=== PATIENT | female | born 1930 | race Two or more races ===

== ENCOUNTER → 2017-06-27 | Outpatient (CLI) | payer BC | END | disposition home or self-care (01) | LOC: US 11:47 | DX: K80.20 Calculus of gallbladder without cholecystitis without obstruction (principal); I10 Essential (primary) hypertension; E11.9 Type 2 diabetes mellitus without complications | CPT/HCPCS: 76700; 76856 ==

== ENCOUNTER → 2017-07-08 | Outpatient (CLI) | payer BC ==
[~2017-07-08] MED LIST: CONTRAST GIVEN MC
[2017-07-08 09:44] LABS: CREATININE 1.1 mg/dL (0.6-1.0); GFR 47.1
[2017-07-08 09:44] LABS: BLOOD UREA NITROGEN 28 mg/dL (7-20)
[2017-07-08] MEDS: IOHEXOL 240 MG/ML 50ML VIAL. PO (11:14)
[2017-07-08] MEDS: IOHEXOL 300 MG/ML 100ML VIAL. IV (11:14)
== END | disposition home or self-care (01) ==
LOC: CT 08:59
DX: K80.20 Calculus of gallbladder without cholecystitis without obstruction (principal); K57.30 Diverticulosis of large intestine without perforation or abscess without bleeding; I51.7 Cardiomegaly; I10 Essential (primary) hypertension; E11.9 Type 2 diabetes mellitus without complications
CPT/HCPCS: 36415; 74177; 82565; 84520; Q9966; Q9967

== ENCOUNTER → 2018-07-08 | Outpatient (CLI) | payer BC ==
[~2018-07-08] MED LIST changes: -CONTRAST GIVEN MC; +LISI1TAB7 PO; +METO100T7 PO; +NAPR-514 PO; +TRAM50TA PO
--- NOTE | 2018-07-08 14:41 | KCIC ---
MRI Lumbar Spine without contrast History: Degenerative disc disease, fall last December, low back pain into the right hip, previous surgery Technique: Multiplanar, multi sequential noncontrast MR imaging was performed of the lumbar spine. Comparison: 11/30/2015 MRI lumbar spine exam and also CT abdomen pelvis exam July 08, 2017 Findings: There is L1 compression deformity new since previous exams although not associated with significant marrow edema. There is again 1 anterior spondylolisthesis at L5-S1, negligible posterior subluxation L2 relative to L3 and L1 relative to L2. Conus terminates at L1. There is again small hemangioma anteriorly of L5 vertebral body. There is variable fairly severe degenerative disc disease T12-L1 through L4-5 and to lesser degree at L5-S1. There is trace L2-3 and T12-L1 endplate edema likely reactive/degenerative in etiology. There is moderate levoscoliosis centered near L3. There is mild left lateral subluxation L3 relative L4. There is very mild right lateral subluxation of L1 relative L2. T11-12: There is mild buckling of the ligamentum flavum and facet degenerative change. There is also shallow bulge/protrusion at this level slightly indenting the ventral thecal sac greater in the right lateral recess. Spinal canal is not significantly narrowed. There is mild to moderate posterior neural foramina compromise bilaterally by facets. T12-L1: There is again minimal disc osteophyte complex and shallow bulge with indentation upon the ventral thecal sac greater in the far lateral recess. There is mild buckling of the ligamentum flavum and facet degenerative change. There is mild narrowing of the far left lateral recess. There is fairly severe narrowing of the left neural foramen due to osteophytes and facet degenerative change, minimal posterior narrowing of the right neural foramen. L1-L2: There is mild buckling of the ligamentum flavum and facet hypertrophic change. There is disc osteophyte complex and superimposed bulge, mild indentation upon the ventral thecal sac, also very shallow extrusion extending slightly below the intervertebral disc space in the left lateral recess. There is mild narrowing of the far left lateral recess as seen previously. There is moderate to severe neural foramina compromise bilaterally overall increased due to L1 vertebral body height loss. L2-L3: There is again disc osteophyte complex with superimposed bulge. There is mild buckling of the ligamentum flavum and facet degenerative change. There is similar minimal narrowing of the far lateral recesses bilaterally. There is again moderate to severe narrowing of the right neural foramen by disc osteophyte complex and facet, left neural foramen adequate. L3-L4: There is again moderate right greater than left facet degenerative change and [id number] buckling of the ligamentum flavum greater on the right. There is again disc osteophyte complex and bulge. There is again overall mild spinal stenosis, again narrowing of the far lateral recesses bilaterally. There is mild left and fairly severe right neural foramina compromise as seen previously, narrowing on the right due to disc osteophyte complex in combination with facet degenerative change and buckling of the ligamentum flavum with contact exiting right L3 nerve root extending to proximal extraforaminal region as seen previously. L4-L5: There is again severe buckling of the ligamentum flavum and moderate to severe left greater than right facet degenerative change. There is again broad posterior disc osteophyte complex with superimposed bulge/broad protrusion. Combination of findings again results in severe spinal stenosis with limited preserved subarachnoid space, lateral recess stenosis bilaterally with impingement of the descending L5 nerve roots greater on the left. There is severe left and moderate to severe right neural foramina compromise as seen previously, contact of the exiting left L4 nerve root by disc osteophyte complex and facet seen previously. L5-S1: There is again severe facet hypertrophic change bilaterally. There is left laminectomy defect. There is partial uncovering of the posterior aspect of the disc due to spondylolisthesis. Spinal canal is overall adequate. There is mild narrowing of the right neural foramen, severe narrowing of the left neural foramen with contact exiting left L5 nerve root unchanged. Impression: 1. Comparing with 2016 exam, there has been development of L1 compression fracture although not associated with significant marrow edema. There is again multilevel lumbar degenerative disc disease, L5-S1 least affected. There is multilevel lumbar facet degenerative change, mild abnormal alignment, and lumbar levoscoliosis. 2. There is again severe spinal stenosis at L4-5, lateral recess stenosis bilaterally with impingement of the descending L5 nerve roots. There is mild spinal stenosis at L3-4, other mild narrowing of the far lateral recesses bilaterally at L2-3 and on the left at L1-2. 3. There is multilevel lumbar neural foramina compromise, more significant narrowing on the left at L5-S1, bilaterally at L4-5 and L1-2, and on the right at L3-4 and L2-3 Electronically signed by: Skyler Ward MD (07/08/2018 2:39 PM) [facility]
== END | disposition home or self-care (01) ==
LOC: KCIC MRI 13:03
PROVIDERS: ATTEND Orthopaedic Surgery Sports Medicine
DX: M48.56XA Collapsed vertebra, not elsewhere classified, lumbar region, initial encounter for fracture (principal); M51.37 Other intervertebral disc degeneration, lumbosacral region; M51.35 Other intervertebral disc degeneration, thoracolumbar region; M48.05 Spinal stenosis, thoracolumbar region; M48.07 Spinal stenosis, lumbosacral region; M43.8X6 Other specified deforming dorsopathies, lumbar region; M43.17 Spondylolisthesis, lumbosacral region; M25.78 Osteophyte, vertebrae; M89.38 Hypertrophy of bone, other site
CPT/HCPCS: 72148

== ENCOUNTER → 2018-09-16 | Outpatient (CLI) | payer BC ==
[~2018-09-16] MED LIST changes: +ASPI81TA50 PO; +BUPIVACAINE MPF 0.25% 10 ML VIAL. ONE; +CHOL500016 PO; +HYDR-2869 PO; +IOHEXOL 180 MG/ML 10 ML VIAL. ONE; +METF500T16 PO; +methylPREDNISolone ACETATE 40 MG/ML VIAL. ONE; +methylPREDNISolone ACETATE 80 MG/ML VIAL. ONE
--- NOTE | 2018-09-17 04:44 | PN ---
DATE: 09/16/2018 PROGRESS NOTE FOR PAIN CLINIC DIAGNOSIS: Low back pain with lumbar spinal stenosis and post-lumbar laminectomy syndrome and lumbar and lumbosacral spondylosis. HISTORY OF PRESENT ILLNESS: The patient is an 88-year-old female who returns for followup status post previous lumbar epidural steroid injections last seen in 08/2015. The patient reports she has had a right hip replacement and had been doing a followup with her orthopedic surgeon for pain in her low back and right hip and was referred on to us as it was not the etiology from her hip by their estimation. The patient reports still significant pain across the low back into the right posterior gluteus, posterior lateral thigh, across the low back mostly, not radiating past the upper thigh and posteriorly. The patient reports it is 10 on a scale of 10 at all times at its worst, average, at its least a 10 today, worse with walking, standing, putting weight on it. Sitting is better. Leaning forward is better, especially worse with standing and walking, even for few minutes if she is standing. It does not awake her from sleep at night, better with lying down. The patient reports it is sharp and shooting, aching and dull when moving and any movement outside of sitting or lying down causes the pain to become severe. The patient reports no loss of motor function, no bowel or bladder incontinence, no weakness of lower extremities. PHYSICAL EXAMINATION: VITAL SIGNS: The patient's blood pressure is 163/91, pulse 80, respirations 18, temperature 97.4 degrees Fahrenheit, height is 5 feet 4 inches and weight is 155 pounds. GENERAL: The patient is awake, alert, oriented, appropriate, very pleasant demeanor. The patient is accompanied by her daughter. HEENT: Head is normocephalic, atraumatic. Extraocular movements are intact and symmetrical. Oral cavity shows mucous membranes moist and pink. Dentition is intact. NECK: Shows anterior throat supple. Full rotational motion of the cervical spine without significant difficulty or pain reported. CHEST: Shows normal on inspection. Breath sounds are clear to auscultation bilaterally. HEART: Shows S1, S2 clear. No murmurs auscultated. ABDOMEN: Soft, nontender, nondistended. BACK: Shows spine grossly in the midline. Moderate exaggeration of thoracic kyphosis and significant flattening of lumbar lordotic curvature. There is a well-healed surgical scar in the midline. Lumbar paraspinous shows symmetrical on inspection. The inferior aspect of the paraspinous muscles is very tender with palpation diffusely, much more on the right than the left, but without radiation and without trigger points. The patient shows good rotational motion with moderate pain with right lateral rotation as well as with extension and axial loading in the lumbar spine, significant pain reported bilaterally, again worse right than left. EXTREMITIES: Lower extremities showed deep tendon reflexes at 1+ in the patellar and tendo-calcaneus tendons. Motor exam is approximately 4 on a scale of 5, but symmetrical and equal with dorsiflexion, extension, quadriceps and hamstring flexion. Peripheral pulses are 1+. No peripheral edema is noted. Options were discussed with the patient. The patient's old chart was reviewed as was her current medication regimen updated. Current review of systems updated today as well. We will proceed with bilateral L4-L5 and L5-S1 facet joint injections today with fluoroscopic guidance. Risks were again discussed including, but not limited to bleeding, infection, possibility of epidural hematoma, subsequent neurologic compromise, dural puncture, headaches, spinal cord and/or nerve damage, side effects of steroid medication and poor results regarding pain control. The patient understands and wished to proceed. The patient will return to clinic in approximately 2 weeks for followup, was counseled on return appointment, activity level and side effects to be aware of. DIAGNOSIS: Lumbar and lumbosacral spondylosis with post-lumbar laminectomy syndrome and lumbar spinal stenosis. PROCEDURE: Lumbar L4-L5 and L5-S1 facet joint injections bilaterally using C-arm fluoroscopic guidance under sterile prep and drape using local anesthetic. MEDICATION INJECTED: A total of 120 mg Depo-Medrol plus 4 mL of 0.25% bupivacaine and 2 mL of Isovue for contrast. CONDITION AT DISCHARGE: Stable. The patient tolerated the procedure well, had no complications. ANTHONY CANTU MD DR: BALJIT/joelle JOB#: [id number] / [id number]
== END ==
LOC: PNCL 11:08
PROVIDERS: ATTEND Anesthesiology
DX: M47.817 Spondylosis without myelopathy or radiculopathy, lumbosacral region (principal); M48.061 Spinal stenosis, lumbar region without neurogenic claudication; M96.1 Postlaminectomy syndrome, not elsewhere classified
CPT/HCPCS: 64493; 64494; J1030; J1040; J3490; Q9965

== ENCOUNTER → 2018-10-02 | Outpatient (CLI) | payer BC ==
[~2018-10-02] MED LIST changes: -methylPREDNISolone ACETATE 40 MG/ML VIAL. ONE
--- NOTE | 2018-10-03 00:51 | PN ---
DATE: 10/02/2018 DIAGNOSES: 1. Lumbar radiculopathy with lumbar spinal stenosis, post-lumbar laminectomy syndrome, lumbar and lumbosacral spondylosis. 2. Right sacroiliitis. HISTORY OF PRESENT ILLNESS: The patient is an 88-year-old female who returns for followup status post bilateral L4-L5 and L5-S1 facet joint injections on her last visit, which was 09/16/2018. The patient reports she did very well and her back is only hurting a little at this point and is doing quite well when seated that she was reporting no pain in the back or the legs, but her main complaint is the right posterior hip pain, which has been much worse with walking, standing, changing positions, getting up from a seated position, especially and standing on her right leg. The patient reports a burning, aching, sharp pain is becoming more constant with walking, rated at 8 on a scale of 10 at its worst over the past week, 8 on average and a 3 at its least, this is when sitting. The patient reports it awakens her from sleep occasionally, but generally is not bothersome when she is sitting or lying down. The patient reports no new motor or sensory deficits, no new bowel or bladder incontinence. PHYSICAL EXAMINATION: VITAL SIGNS: The patient's blood pressure 145/73, pulse 67, respirations 18, temperature 97.7 degrees Fahrenheit, height is 5 feet 4 inches, weight is 155 pounds. GENERAL: The patient is awake, alert, oriented, appropriate, very pleasant demeanor. HEENT: Shows normocephalic, atraumatic. Extraocular movements are intact. Symmetrical. Oral cavity: Mucous membranes moist and pink. Dentition is intact. NECK: Shows anterior throat supple without palpable lymphadenopathy noted. Swallow reflex symmetrical. CHEST: Shows normal on inspection. Breath sounds clear to auscultation bilaterally. HEART: Shows S1, S2 clear. No murmurs auscultated. ABDOMEN: Soft, nontender, nondistended. No palpable organomegaly is noted. No rebound or guarding demonstrated. BACK: Shows spine grossly in the midline, some flattening of lumbar lordotic curvature. Well-healed surgical scar noted. With palpation, shows some moderate tenderness in the inferior aspect of the lumbar paraspinous muscle trigger points, but only diffusely. There is significant tenderness; however, over the posterior superior iliac spine on the right hand, significant tenderness with palpation over the right sacroiliac joint compared to the left. The patient has good rotational motion of lumbar spine, both laterally greater than 10 degrees right and left as well as extension and forward flexion without difficulty. EXTREMITIES: The patient's lower extremities show deep tendon reflexes 1+ in the patellar and tendo-calcaneus tendons. Motor exam is approximately 4 on a scale of 5, but symmetrical in dorsiflexion, extension, quadriceps and hamstring flexion equal. Peripheral pulses are 1+ posterior tibial. No peripheral edema is noted. Options were discussed with the patient. The patient's old chart was reviewed as her current medication regimen updated. Current review of systems updated today as well. We will proceed with a right sacroiliac joint injection today with fluoroscopic guidance. Risks were again discussed including, but not limited to bleeding, infection, possibility of intravascular injection sequelae, spread of local anesthetic and numbness, side effects of steroid medication, exposure to fluoroscopy and poor results regarding pain control. The patient understands and wished to proceed. The patient will return to clinic in approximately 2 weeks for followup. She was counseled on return appointment, activity level and side effects to be aware of. DIAGNOSIS: Right sacroiliitis. PROCEDURE: Right sacroiliac joint injection using C-arm fluoroscopic guidance under sterile prep and drape using local anesthetic. MEDICATION INJECTED: A total of 3 mL of 0.25% bupivacaine and a total of 40 mg Depo-Medrol and 2 mL of contrast. CONDITION AT DISCHARGE: Stable. The patient tolerated the procedure well, had no complications. ANTHONY CANTU MD DR: BALJIT/joelle JOB#: [id number] / [id number]
== END ==
LOC: PNCL 10:35
PROVIDERS: ATTEND Anesthesiology
DX: M46.1 Sacroiliitis, not elsewhere classified (principal); M54.16 Radiculopathy, lumbar region; M48.061 Spinal stenosis, lumbar region without neurogenic claudication; M96.1 Postlaminectomy syndrome, not elsewhere classified; M47.817 Spondylosis without myelopathy or radiculopathy, lumbosacral region
CPT/HCPCS: 27096; J1040; J3490; Q9965; G0260

== ENCOUNTER 2018-11-13 02:21 | Emergency (ER) | payer BC ==
[~2018-11-13] VITALS: Ht 162.6 cm; Wt 68.0 kg
[~2018-11-13 02:21] MED LIST changes: -BUPIVACAINE MPF 0.25% 10 ML VIAL. ONE; -IOHEXOL 180 MG/ML 10 ML VIAL. ONE; +LISI1TAB20 PO; -LISI1TAB7 PO; -methylPREDNISolone ACETATE 80 MG/ML VIAL. ONE
[2018-11-13 03:09] LABS: BASO # 0.1 x10^3/uL (0.0-0.2); BASO % 1 % (0-3); EOS # 0.1 x10^3/uL (0.0-0.7); EOS % 1 % (0-3); HEMATOCRIT 43.4 % (36.0-47.0); HEMOGLOBIN 15.1 g/dL (12.0-15.5); LYMPH # 0.8 x10^3/uL (1.0-4.8); LYMPH % 9 % (24-48); MEAN CORPUSCULAR HEMOGLOBIN 32 pg (25-35); MEAN CORPUSCULAR HGB CONC 35 g/dL (31-37); MEAN CORPUSCULAR VOLUME 91 fL (79-100); MONO # 0.6 x10^3/uL (0.0-1.1); MONO % 6 % (0-9); NEUT % 84 % (31-73); PLATELET COUNT 209 x10^3/uL (140-400); RED BLOOD COUNT 4.77 x10^6/uL (3.50-5.40); RED CELL DISTRIBUTION WIDTH 13.5 % (11.5-14.5); WHITE BLOOD COUNT 9.5 x10^3/uL (4.0-11.0)
--- NOTE | 2018-11-13 03:32 | RAD ---
CT head without contrast. CT cervical spine without contrast. PQRS statement: CT scans at this facility use dose reduction including either automated exposure control, iterative reconstructions, and /or weight based radiation dosing via mA and kV modification when appropriate to reduce radiation dose to as low as reasonably achievable. HISTORY: Fall, pain. TECHNIQUE: Noncontrast CT imaging of the head cervical spine multiplanar reconstructions. CT head findings: Moderate generalized brain atrophy. Small age-indeterminate hypoattenuating ischemic infarct of the right frontal lobe on images 19. No intracranial hemorrhage, mass or hydrocephalus. Cerebral white matter hypoattenuation is likely representing changes of chronic microvascular ischemic disease. Subcentimeter in thickness focal left frontal scalp hematoma. Orbits, mastoids and bones are unremarkable. IMPRESSION: 1. No acute traumatic intracranial CT abnormality. 2. Small left parietal scalp hematoma. No skull fracture. 3. Age-indeterminate small right frontal lobe ischemic infarct. CT cervical spine findings: Craniocervical junction intact. Cervical vertebral body height and alignment intact. No fracture of the cervical spine. Cervical disc osteophytes and uncovertebral facet spurs with spinal canal and neural foraminal stenoses. Lung apices unremarkable. Thyroid nodules largest measuring 1.5 cm. [place] peripherally calcified soft tissue density left upper neck below the skull base at the region of the carotid artery likely ectasia or aneurysm of the vessel. IMPRESSION: 1. No acute osseous injury of the cervical spine. 2. Cervical disc disease. 3. Thyroid nodules. 4. [place] peripherally calcified soft tissue density at the left upper neck below the skull base likely representing ectasia or aneurysm of the carotid artery. Electronically signed by: Raza Power MD (11/13/2018 3:29 AM) [facility]
[2018-11-13 03:56] LABS: CALCIUM 11.5 mg/dL (8.5-10.1); CREATININE 1.1 mg/dL (0.6-1.0); POTASSIUM 3.8 mmol/L (3.5-5.1)
--- NOTE | 2018-11-13 03:56 | RAD ---
AP chest x-ray HISTORY: Weakness. FINDINGS: Mild cardiomegaly. Tortuosity/ectasia of the aortic arch calcified plaque. Tiny calcified granulomas left upper lobe. No pneumothorax, pulmonary opacities or pleural effusions. Right upper lobe small calcified granuloma. Loose bodies axillary recess right shoulder. Arthritis of the bilateral shoulders. IMPRESSION: No acute process. Mild cardiomegaly. Electronically signed by: Raza oPwer MD (11/13/2018 3:53 AM) [facility]
[2018-11-13 04:01] LABS: ALBUMIN 3.9 g/dL (3.4-5.0); ALBUMIN/GLOBULIN RATIO 1.4 (1.0-1.7); MAGNESIUM 1.2 mg/dL (1.8-2.4); TOTAL BILIRUBIN 0.7 mg/dL (0.2-1.0); TOTAL PROTEIN 6.7 g/dL (6.4-8.2)
[2018-11-13 04:09] LABS: BILIRUBIN,URINE NEGATIVE (NEG); CLARITY,URINE CLEAR; COLOR,URINE YELLOW; NITRITE,URINE NEGATIVE (NEG); PROTEIN,URINE 30 mg/dL (NEG-TRACE); UROBILINOGEN,URINE 0.2 mg/dL (0.2 mg/dL)
[2018-11-13 04:20] LABS: BACTERIA,URINE MANY /HPF (0-FEW); RBC,URINE OCC /HPF (0-2)
[2018-11-13 04:21] LABS: SQUAMOUS EPITHELIAL CELL,UR MOD /LPF
--- NOTE | 2018-11-13 04:37 | PHYS DOC ---
Past Medical History Past Medical History: Diabetes-Type II, Hypertension, Other Additional Past Medical Histor: back pain Past Surgical History: Hip Replacement Alcohol Use: Rarely Drug Use: None Adult General Chief Complaint Chief Complaint: MECHANICAL FALL HPI HPI Patient is a 88 year old [f__sex] who presents with [] Review of Systems Review of Systems Constitutional: Denies fever or chills Eyes: Denies redness or eye pain HENT: Denies nasal congestion or sore throat Respiratory: Denies cough or shortness of breath Cardiovascular: Denies chest pain or palpitations GI: Denies abdominal pain, nausea, or vomiting : Denies dysuria or hematuria Musculoskeletal: Denies back pain or joint pain Integument: Denies rash or skin lesions Neurologic: Denies headache, focal weakness or sensory changes Complete systems were reviewed and found to be within normal limits, except as documented in this note. Current Medications Current Medications Current Medications Medications (Trade) Dose Ordered Sig/Yu Start Time Stop Time Status Last Admin Dose Admin Magnesium Chloride (Mag Delay) 128 mg 1X ONCE 11/13/18 04:45 11/13/18 04:46 DC 11/13/18 04:46 128 MG Allergies Allergies Allergies Coded Allergies Type Severity Reaction Last Updated Verified Daebucb-Msl-Qkq Reductase Inhibitor Allergy Intermediate Swelling 06/12/15 Yes amlodipine Allergy Intermediate Swelling 06/12/15 Yes Physical Exam Physical Exam Constitutional: Well developed, well nourished, no acute distress, non-toxic appearance HENT: Normocephalic, atraumatic, oropharynx moist Eyes: PERRL, EOMI, conjunctiva normal, no discharge Neck: Normal range of motion, no tenderness, supple Cardiovascular: Heart rate normal, regular rhythm Lungs & Thorax: Bilateral breath sounds clear to auscultation, no wheezing Abdomen: Soft, no tenderness Skin: Warm, dry, no erythema, no rash Back: No tenderness, no CVA tenderness Extremities: No tenderness, ROM intact, no edema Neurologic: Alert and oriented X 3, normal motor function, normal sensory function, no focal deficits noted Psychologic: Affect normal, judgement normal, mood normal Current Patient Data Vital Signs Vital Signs Date Time Temp Pulse Resp B/P (MAP) Pulse Ox O2 Delivery O2 Flow Rate FiO2 11/13/18 04:41 76 20 95 11/13/18 02:25 98.6 141/76 (97) Room Air 98.6 Lab Values Laboratory Tests Test 11/13/18 02:50 11/13/18 03:35 White Blood Count 9.5 x10^3/uL (4.0-11.0) Red Blood Count 4.77 x10^6/uL (3.50-5.40) Hemoglobin 15.1 g/dL (12.0-15.5) Hematocrit 43.4 % (36.0-47.0) Mean Corpuscular Volume 91 fL (79-100) Mean Corpuscular Hemoglobin 32 pg (25-35) Mean Corpuscular Hemoglobin Concent 35 g/dL (31-37) Red Cell Distribution Width 13.5 % (11.5-14.5) Platelet Count 209 x10^3/uL (140-400) Neutrophils (%) (Auto) 84 % (31-73) H Lymphocytes (%) (Auto) 9 % (24-48) L Monocytes (%) (Auto) 6 % (0-9) Eosinophils (%) (Auto) 1 % (0-3) Basophils (%) (Auto) 1 % (0-3) Neutrophils # (Auto) 8.0 x10^3/uL (1.8-7.7) H Lymphocytes # (Auto) 0.8 x10^3/uL (1.0-4.8) L Monocytes # (Auto) 0.6 x10^3/uL (0.0-1.1) Eosinophils # (Auto) 0.1 x10^3/uL (0.0-0.7) Basophils # (Auto) 0.1 x10^3/uL (0.0-0.2) Sodium Level 138 mmol/L (136-145) Potassium Level 3.8 mmol/L (3.5-5.1) Chloride Level 102 mmol/L (98-107) Carbon Dioxide Level 23 mmol/L (21-32) Anion Gap 13 (6-14) Blood Urea Nitrogen 31 mg/dL (7-20) H Creatinine 1.1 mg/dL (0.6-1.0) H Estimated GFR (Cockcroft-Gault) 47.0 BUN/Creatinine Ratio 28 (6-20) H Glucose Level 182 mg/dL (70-99) H Lactic Acid Level 1.5 mmol/L (0.4-2.0) Calcium Level 11.5 mg/dL (8.5-10.1) H Magnesium Level 1.2 mg/dL (1.8-2.4) L Total Bilirubin 0.7 mg/dL (0.2-1.0) Aspartate Amino Transferase (AST) 22 U/L (15-37) Alanine Aminotransferase (ALT) 17 U/L (14-59) Alkaline Phosphatase 62 U/L (46-116) Creatine Kinase 238 U/L (26-192) H Creatine Kinase MB (Mass) 5.1 ng/mL (0.0-3.6) H Creatine Kinase MB Relative Index 2.1 % (0-4) Troponin I Quantitative 0.017 ng/mL (0.000-0.055) Total Protein 6.7 g/dL (6.4-8.2) Albumin 3.9 g/dL (3.4-5.0) Albumin/Globulin Ratio 1.4 (1.0-1.7) Urine Collection Type Unknown Urine Color Yellow Urine Clarity Clear Urine pH 6.0 Urine Specific [place] 1.010 Urine Protein 30 mg/dL (NEG-TRACE) Urine Glucose (UA) Negative mg/dL (NEG) Urine Ketones (Stick) Negative mg/dL (NEG) Urine Blood Negative (NEG) Urine Nitrite Negative (NEG) Urine Bilirubin Negative (NEG) Urine Urobilinogen Dipstick 0.2 mg/dL (0.2 mg/dL) Urine Leukocyte Esterase Negative (NEG) Urine RBC Occ /HPF (0-2) Urine WBC 5-10 /HPF (0-4) Urine Squamous Epithelial Cells Mod /LPF Urine Renal Epithelial Cells Occ /LPF Urine Bacteria Many /HPF (0-FEW) Urine Mucus Mod /LPF Laboratory Tests 11/13/18 02:50 Laboratory Tests 11/13/18 02:50 EKG EKG @0333 NSR at 89bpm, NO ST elevation, LAFB, baseline artifact noted. Radiology/Procedures Radiology/Procedures PROCEDURE: CT HEAD AND CERVICAL SPINE WO CT head without contrast. CT cervical spine without contrast. PQRS statement: CT scans at this facility use dose reduction including either automated exposure control, iterative reconstructions, and /or weight based radiation dosing via mA and kV modification when appropriate to reduce radiation dose to as low as reasonably achievable. HISTORY: Fall, pain. TECHNIQUE: Noncontrast CT imaging of the head cervical spine multiplanar reconstructions. CT head findings: Moderate generalized brain atrophy. Small age-indeterminate hypoattenuating ischemic infarct of the right frontal lobe on images 19. No intracranial hemorrhage, mass or hydrocephalus. Cerebral white matter hypoattenuation is likely representing changes of chronic microvascular ischemic disease. Subcentimeter in thickness focal left frontal scalp hematoma. Orbits, mastoids and bones are unremarkable. IMPRESSION: 1. No acute traumatic intracranial CT abnormality. 2. Small left parietal scalp hematoma. No skull fracture. 3. Age-indeterminate small right frontal lobe ischemic infarct. CT cervical spine findings: Craniocervical junction intact. Cervical vertebral body height and alignment intact. No fracture of the cervical spine. Cervical disc osteophytes and uncovertebral facet spurs with spinal canal and neural foraminal stenoses. Lung apices unremarkable. Thyroid nodules largest measuring 1.5 cm. [place] peripherally calcified soft tissue density left upper neck below the skull base at the region of the carotid artery likely ectasia or aneurysm of the vessel. IMPRESSION: 1. No acute osseous injury of the cervical spine. 2. Cervical disc disease. 3. Thyroid nodules. 4. [place] peripherally calcified soft tissue density at the left upper neck below the skull base likely representing ectasia or aneurysm of the carotid artery. Electronically signed by: Raza Power MD (11/13/2018 3:29 AM) [facility] PROCEDURE: PORTABLE CHEST 1V AP chest x-ray HISTORY: Weakness. FINDINGS: Mild cardiomegaly. Tortuosity/ectasia of the aortic arch calcified plaque. Tiny calcified granulomas left upper lobe. No pneumothorax, pulmonary opacities or pleural effusions. Right upper lobe small calcified granuloma. Loose bodies axillary recess right shoulder. Arthritis of the bilateral shoulders. IMPRESSION: No acute process. Mild cardiomegaly. Electronically signed by: Raza Power MD (11/13/2018 3:53 AM) [facility] Course & Med Decision Making Course & Med Decision Making Pertinent Labs and Imaging studies reviewed. (See chart for details) Patient stable for discharge with outpatient follow-up with PCP. Discussed findings and plan with patient and family, who acknowledge understanding and agreement. Dragon Disclaimer Dragon Disclaimer This electronic medical record was generated, in whole or in part, using a voice recognition dictation system. Departure Departure Impression: Primary Impression: Fall Additional Impressions: Head contusion Hypomagnesemia Disposition: 01 HOME, SELF-CARE Condition: STABLE Referrals: ELIECER WU MD (PCP) Patient Instructions: Facial or Scalp Contusion, [id number], Fall Prevention and Home Safety, [id number], Hypomagnesemia Problem Qualifiers Primary Impression: Fall Encounter type: initial encounter Qualified Codes: W19.XXXA - Unspecified fall, initial encounter Additional Impressions: Head contusion Encounter type: initial encounter Contusion of head detail: unspecified part of head Qualified Codes: S00.93XA - Contusion of unspecified part of head, initial encounter FAWN MURO DO Nov 13, 2018 04:37
[2018-11-13 04:41] VITALS: BP 140/74
[2018-11-13] MEDS ORDERED: MAGNESIUM CHLORIDE ER 64 MG TABLET.ER PO ONE (04:45)
--- NOTE | 2018-11-13 06:15 | EKG ---
[facility] [address] [place] [address] Test Date: 2018-11-13 Test Time: 03:33:27 Pat Name: GAMALIEL FABIAN Department: Room: Gender: F Reconditioner: : 1930 Requested By: FAWN MURO Order Number: [id number] Reading MD: Measurements Intervals [place] Rate: 89 P: ID: QRS: -37 QRSD: 96 T: -8 QT: 372 QTc: 454 Interpretive Statements SINUS RHYTHM ABNORMAL LEFT AXIS DEVIATION R-S TRANSITION ZONE IN V LEADS DISPLACED TO THE LEFT LEFT ANTERIOR FASCICULAR BLOCK QRS(T) CONTOUR ABNORMALITY CONSIDER ANTEROSEPTAL MYOCARDIAL DAMAGE ABNORMAL ECG RI6.01 Unconfirmed report No previous ECG available for comparison
== END 2018-11-13 05:05 | disposition home or self-care (01) ==
LOC: ER 02:21
DX: S00.83XA Contusion of other part of head, initial encounter (principal); E83.42 Hypomagnesemia; E11.9 Type 2 diabetes mellitus without complications; I10 Essential (primary) hypertension; Z96.649 Presence of unspecified artificial hip joint; Z88.8 Allergy status to other drugs, medicaments and biological substances; W18.2XXA Fall in (into) shower or empty bathtub, initial encounter; Y93.89 Activity, other specified; Y92.002 Bathroom of unspecified non-institutional (private) residence as the place of occurrence of the external cause; Y99.8 Other external cause status
CPT/HCPCS: 36415; 70450; 71045; 72125; 80053; 81001; 82553; 83605; 83735; 84484; 85025; 87086; 93005; 99285

== ENCOUNTER → 2018-11-26 | Outpatient (CLI) | payer BC ==
[2018-11-13 04:41] VITALS: BP 140/74
[~2018-11-26] MED LIST changes: +BUPIVACAINE MPF 0.25% 10 ML VIAL. ONE; +IOHEXOL 180 MG/ML 10 ML VIAL. ONE; +methylPREDNISolone ACETATE 40 MG/ML VIAL. ONE; +methylPREDNISolone ACETATE 80 MG/ML VIAL. ONE
--- NOTE | 2018-11-26 20:16 | PAIN ---
DATE OF SERVICE: 11/26/2018 PROGRESS NOTE FOR PAIN CLINIC DIAGNOSES: Lumbar radiculopathy with lumbar spinal stenosis, lumbar post-laminectomy syndrome and lumbar and lumbosacral spondylosis. HISTORY OF PRESENT ILLNESS: The patient, an 88-year-old female, returns in followup status post right sacroiliac joint injection on her last visit, which did help by about 50%, also bilateral facet joint injections back on 09/16/2018, which helped about 80%. The patient reports that the pain in the back is coming back, is much worse now, especially with standing and walking, better with sitting or lying down, does not awaken her from sleep at night. Reports much worse with walking, standing and especially with extension of the lumbar spine and axial loading of the lumbar distribution with standing and ambulating. The patient reports the right hip still has some tenderness as well posteriorly on the right side, but the back is much more noticeable. The patient reports it is an 8 on a scale of 10 at its worst over the past week, 6 on average, 5 at its least and is a 6 today. The patient reports it is burning, is sharp, aching across the low back bilaterally, right and left without specific radiation into the lower extremities. The patient reports no new motor or sensory deficits, no new bowel or bladder incontinence or other complaints. PHYSICAL EXAMINATION: VITAL SIGNS: The patient's blood pressure is 124/73, pulse 72, respirations 16, temperature is 98.3 degrees Fahrenheit, height is 5 feet 4 inches, weight is 146 pounds. GENERAL: The patient is awake, alert, oriented, appropriate, very pleasant demeanor. HEENT: Shows normocephalic, atraumatic. Extraocular movements are intact and symmetrical. Oral cavity: Mucous membranes moist and pink. Dentition is intact. NECK: Shows anterior throat supple without palpable lymphadenopathy noted. Swallow reflex symmetrical. CHEST: Shows normal on inspection. Breath sounds are clear to auscultation bilaterally. HEART: Shows S1, S2 clear. No murmurs auscultated. ABDOMEN: Soft, nontender, nondistended. No palpable organomegaly is noted. No rebound or guarding demonstrated. BACK: Shows spine grossly in the midline, normal-appearing thoracic kyphosis, some minor flattening of lumbar lordotic curvature, well-healed surgical scarring noted and she has some increased thoracic kyphosis in the thoracic distribution. Lumbar paraspinous muscles show symmetrical on inspection with palpation with some moderate tenderness diffusely bilaterally, but only diffusely without specific radiation. The patient has good rotational motion, but with some moderate tenderness with both right and left lateral rotation greater than 10 degrees as well as with extension, significant tenderness at 10 degrees with decreased pain with 45-degree forward flexion. EXTREMITIES: The patient's lower extremities show deep tendon reflexes 1+ in the patellar and tendo-calcaneus tendons. Motor exam is approximately 4 on a scale of 5, but symmetrical with dorsiflexion, extension, quadriceps and hamstring flexion equal bilaterally. Peripheral pulses are 1+. No peripheral edema is noted bilaterally. Options were discussed with the patient. The patient's old chart was reviewed as is her current medication regimen updated. Current review of systems updated today as well. We will proceed with bilateral L4-L5 and L5-S1 facet joint injections using C-arm fluoroscopic guidance. Risks were again discussed, including but not limited to bleeding, infection, possibility of epidural hematoma, subsequent neurological compromise, dural puncture, headaches, spinal cord and/or nerve damage, side effects of steroid medication and poor results regarding pain control. The patient understands and wished to proceed. The patient will return to the clinic in approximately 2 weeks for followup. She was counseled on return appointment, activity level and side effects to be aware of. DIAGNOSIS: Lumbar and lumbosacral spondylosis. PROCEDURE: Bilateral L4-L5 and L5-S1 facet joint injections using C-arm fluoroscopic guidance under sterile prep and drape using local anesthetic. MEDICATION INJECTED: A total of 4 mL of 0.25% bupivacaine, 120 mg Depo-Medrol and 3 mL of contrast. CONDITION AT DISCHARGE: Stable. The patient tolerated procedure well, had no complications. ANTHONY CANTU MD DR: BALJIT/joelle JOB#: [id number] / [id number]
== END ==
LOC: PNCL 08:45
PROVIDERS: ATTEND Anesthesiology
DX: M47.817 Spondylosis without myelopathy or radiculopathy, lumbosacral region (principal); M54.16 Radiculopathy, lumbar region; M96.1 Postlaminectomy syndrome, not elsewhere classified
CPT/HCPCS: 64493; 64494; J1030; J1040; J3490; Q9965

== ENCOUNTER → 2018-12-08 | Outpatient (CLI) | payer BC ==
[2018-11-13 04:41] VITALS: BP 140/74
[~2018-12-08] MED LIST changes: -BUPIVACAINE MPF 0.25% 10 ML VIAL. ONE; +GADOTERATE 7.5 MMOL/15ML VIAL. IVP ONE; -IOHEXOL 180 MG/ML 10 ML VIAL. ONE; -methylPREDNISolone ACETATE 40 MG/ML VIAL. ONE; -methylPREDNISolone ACETATE 80 MG/ML VIAL. ONE
--- NOTE | 2018-12-08 14:52 | KCIC ---
MRA Brain History: Ischemia, abnormal head CT Technique: 3-D [id number] MR angiography was performed of the brain. Comparison: November 13, 2018 CT cervical spine exams Findings: Determination of any degree of stenosis is based on NASCET criteria. There is motion degradation. Both vertebral arteries constitute the basilar artery. There is visualization segments left PICA, not seen on the right. There is visualization segments bilateral AICAs and superior cerebellar arteries. No significant posterior communicating arteries are visualized on either side. There is visualization of the internal carotid arteries bilaterally at the skull base. There is patent anterior communicating artery. There is hypoplastic right A1 segment. There is moderate to severe stenosis of the distal right M1 segment, limited characterization due to motion. There is at least mild narrowing at the origin of the left M1 segment. There is long segment wall irregularity of left M2 branches. There is also multifocal wall irregularity of bilateral posterior cerebral arteries, poor visualization of the right posterior cerebral artery beyond the distal P2 segment, also likely more significant stenosis of the mid to distal left P2 segment and probable moderate narrowing of the proximal right P2 segment. No intracranial aneurysm is identified. Impression: 1. There is multifocal intracranial wall irregularity, evidence of intracranial atherosclerotic disease. There is more significant narrowing of the distal right M1 segment, poor visualization of more distal right posterior cerebral artery, stenosis of the left posterior cerebral artery, and long segment wall irregularity of left M2 branches Neck MRA without and with contrast History: Technique: [id number] and postcontrast MR angiography was performed of the neck. Comparison: None Findings: Determination of any degree of stenosis is based on NASCET criteria. There is motion degradation. There is at least mild narrowing of the origin of the right vertebral artery. Proximal vertebral arteries are tortuous bilaterally. No significant stenosis is identified of the cervical internal carotid arteries on either side. Evaluation of the proximal right common carotid artery somewhat limited due to more artifact in this region, otherwise patent without significant stenosis. CT findings correspond with a tortuous and fusiform ectatic distal left cervical internal carotid artery, maximal caliber about 0.7 cm, more proximal caliber about 0.4 cm and distally about 0.3 cm. There is antegrade flow in the bilateral vertebral arteries as well as common and cervical internal carotid arteries. There are normal anatomic origins of the great vessels. Impression: 1. CT findings correspond with a tortuous and fusiform ectatic distal left cervical internal carotid artery. 2. There is likely at least mild narrowing near the origin of the right cervical vertebral artery. Electronically signed by: Skyler Ward MD (12/08/2018 2:49 PM) [id number]
== END | disposition home or self-care (01) ==
LOC: KCIC MRI 10:06
PROVIDERS: ATTEND Family Medicine
DX: I67.2 Cerebral atherosclerosis (principal); I66.9 Occlusion and stenosis of unspecified cerebral artery; I72.0 Aneurysm of carotid artery; E11.9 Type 2 diabetes mellitus without complications
CPT/HCPCS: 70544; 70549; A9575

== ENCOUNTER → 2018-12-21 | Outpatient (CLI) | payer BC ==
[~2018-12-21] MED LIST changes: +BUPIVACAINE MPF 0.25% 10 ML VIAL. ONE; -GADOTERATE 7.5 MMOL/15ML VIAL. IVP ONE; +LIDOCAINE 1% PF 2 ML VIAL. ONE; +LIDOCAINE 2% PF 5 ML VIAL. ONE; +methylPREDNISolone ACETATE 40 MG/ML VIAL. ONE; +methylPREDNISolone ACETATE 80 MG/ML VIAL. ONE
--- NOTE | 2018-12-21 17:01 | PAIN ---
DATE OF SERVICE: 12/21/2018 PROGRESS NOTE FOR PAIN CLINIC DIAGNOSES: Lumbar spinal stenosis, lumbar post-laminectomy syndrome, and lumbar and lumbosacral spondylosis. HISTORY OF PRESENT ILLNESS: The patient is an 88-year-old female who returns for followup status post bilateral medial branch facet injections with very good results about 80% improvement on each injection. We discussed last time about performing a radiofrequency ablation. She would like to proceed with that today. The patient reports her right side is worse than the left, but is still painful bilaterally. The patient reports no new motor or sensory deficits. She does have some complaints of significant left knee pain. She has been told by her orthopedic surgeon that she needed a knee replacement or should consider one; however, she is not ready to do this just yet, but her back pain is her main complaint today. The patient reports the pain at 8 on a scale of 10 at its worst, 8 on average, 7 at its least and is an 8 today. The patient reports it is a sharp, burning, stabbing, constant with walking, severe. She is using a walker to ambulate at all times. The patient reports no new motor or sensory deficits, better with sitting or lying down, does not awaken her from sleep at night. PHYSICAL EXAMINATION: VITAL SIGNS: The patient's blood pressure 150/92, pulse 77, respirations 18, temperature 97.9 degrees Fahrenheit, height is 5 feet 4 inches, weight is 140 pounds. GENERAL: The patient is awake, alert, oriented, appropriate, very pleasant demeanor. The patient is accompanied by her daughter. HEENT: Head shows normocephalic, atraumatic. Extraocular movements are intact and symmetrical. Oral cavity: Mucous membranes moist and pink. Dentition is intact. NECK: Shows anterior throat supple without palpable lymphadenopathy noted. Swallow reflex is symmetrical. CHEST: Shows normal on inspection. Breath sounds are clear to auscultation bilaterally. HEART: Shows S1, S2 clear. No murmurs auscultated. ABDOMEN: Soft, nontender, nondistended. No palpable organomegaly is noted. No rebound or guarding demonstrated. BACK: Shows spine grossly in the midline. Slightly exaggerated thoracic kyphosis and some flattening of lumbar lordotic curvature. Lumbar paraspinous muscle shows symmetrical on inspection, on palpation shows some moderate tenderness diffusely bilaterally going diffusely without radiation. The patient's paraspinous muscle shows symmetrical on inspection, with palpation shows some moderate tenderness diffusely bilaterally without trigger points. The patient has good rotational motion of lumbar spine with some moderate tenderness with right and left lateral rotation, more to the right greater than 10 degrees, also with extension significant pain greater than 10 degrees, more on the right than the left, but present bilaterally. This is decreased with forward flexion, which is performed at about 40-45 degrees without difficulty. EXTREMITIES: Lower extremities show deep tendon reflexes 1+ in the patellar and tendo calcaneus tendons. Motor exam is approximately 4 on a scale of 5, but equal and symmetrical bilaterally without deficits. Peripheral pulses are 1+. No peripheral edema is noted. Options were discussed with the patient. The patient's old chart was reviewed as her current medication regimen updated. Current review of systems updated today as well. We will proceed with bilateral L4-L5 and L5-S1 medial branch facet radiofrequency ablation. Risks were again discussed including, but not limited to bleeding, infection, possibility of epidural hematoma, subsequent neurological compromise, dural punctures, headaches, spinal cord and/or nerve damage, side effects of steroid medication, exposure to fluoroscopy, potential thermal damage to the surrounding structures as well as the tendons, ligaments, muscles and potential motor or nerve damage. The patient understands and wished to proceed. The patient will return to the clinic in approximately 3 weeks for followup. She was counseled as to return appointment, activity level and side effects to be aware of. We also discussed potential knee injection on the left as she has significant advanced osteoarthritis of the left knee, would like to try the Synvisc injection. We discussed this with her. She would like to discuss this with her orthopedic surgeon in the meantime as well. We will have this available for her if she feels this is something she would like to try and if it is recommended by her orthopedic surgeon as well. The patient will follow up as scheduled. DIAGNOSES: Bilateral lumbar spondylosis both lumbar and lumbosacral with post-laminectomy syndrome and lumbar spinal stenosis. PROCEDURE: Bilateral L4-L5 and L5-S1 medial branch radiofrequency ablation using C-arm fluoroscopic guidance under sterile prep and drape using local anesthetic. MEDICATION INJECTED: A total of 6 mL of 2% lidocaine after motor testing, which was negative at each level, but prior to radiofrequency ablation, total of 6 mL of 0.25% bupivacaine after radiofrequency ablation, 1 mL per site with 120 mg Depo-Medrol total. CONDITION AT DISCHARGE: Stable. The patient tolerated the procedure well, had no complications. Please see radiofrequency flow sheet for times, levels, radiofrequency temperatures, and impedances. ANTHONY CANTU MD DR: BALJIT/joelle JOB#: [id number] / [id number]
== END ==
LOC: PNCL 12:41
PROVIDERS: ATTEND Anesthesiology
DX: M47.817 Spondylosis without myelopathy or radiculopathy, lumbosacral region (principal); M48.061 Spinal stenosis, lumbar region without neurogenic claudication; M96.1 Postlaminectomy syndrome, not elsewhere classified
CPT/HCPCS: 64635; 64636; J1030; J1040; J2001; J3490

== ENCOUNTER → 2019-01-18 | Outpatient (CLI) | payer BC ==
[~2019-01-18] MED LIST changes: -BUPIVACAINE MPF 0.25% 10 ML VIAL. ONE; +HYLAN G-F 20 48 MG/6 ML SYRINGE INT ART ONE; +IOHEXOL 180 MG/ML 10 ML VIAL. ONE; -LIDOCAINE 1% PF 2 ML VIAL. ONE; -LIDOCAINE 2% PF 5 ML VIAL. ONE; -methylPREDNISolone ACETATE 40 MG/ML VIAL. ONE; -methylPREDNISolone ACETATE 80 MG/ML VIAL. ONE
--- NOTE | 2019-01-18 12:13 | PAIN ---
DATE OF SERVICE: 01/18/2019 PROGRESS NOTE FOR PAIN CLINIC DIAGNOSES: 1. Lumbar radiculopathy with lumbar spinal stenosis, lumbar post-laminectomy syndrome. 2. Lumbar spondylosis and lumbosacral spondylosis. 3. Right sacroiliitis. 4. Left knee joint pain with primary osteoarthritis, left knee joint. HISTORY OF PRESENT ILLNESS: The patient is an 89-year-old female who returns for followup status post radiofrequency ablation, bilateral L4-L5 and L5-S1 facet joint, medial branches with no real significant long-term improvement. The patient reports still significant pain, mainly in the right low back and hip and also her chief complaint is left knee pain with walking, standing and weightbearing. The patient reports it is 7 on a scale of 10 at its worst over the past week, 7 on average, 4 at its least and is a 7 today, but it is aching, sharp, stabbing at times with weightbearing only. No significant pain with sitting or resting, but when putting weight on her knees has immediate pain in the medial compartment of the left knee. The patient has had cortisone injections with her orthopedic surgeon over the summer, which were only very temporarily helpful. We discussed a Synvisc injection. She would like to proceed with that today. The patient's daughter who accompanies her confirms her reports as well. The patient reports she has recently moved to an assisted living facility in [place], [place] and so far likes her environment. The patient reports no new motor or sensory deficits, no new changes. PHYSICAL EXAMINATION: VITAL SIGNS: The patient's blood pressure 112/58, pulse 72, respirations 16, temperature 97.7 degrees Fahrenheit, height is 5 feet 4 inches. GENERAL: The patient is awake, alert, oriented, appropriate, very pleasant demeanor. HEENT: Shows normocephalic, atraumatic. Extraocular movements are intact and symmetrical. Oral cavity shows mucous membranes moist and pink. Dentition is intact. NECK: Shows anterior throat supple without palpable lymphadenopathy noted. Swallow reflex symmetrical. CHEST: Shows normal on inspection. Breath sounds clear to auscultation bilaterally. HEART: Shows S1, S2 clear. No murmurs auscultated. ABDOMEN: Soft, nontender, nondistended. BACK: Shows spine grossly in the midline, slight exaggerated thoracic kyphosis and minor flattening of lumbar lordotic curvature. Lumbar paraspinous muscle shows symmetrical on inspection, on palpation shows some moderate tenderness diffusely, but only diffusely without radiation. The patient shows some significant tenderness over the right sacroiliac region as well as to the right posterior superior iliac spine with palpation. The patient has good rotational motion of lumbar spine with some moderate tenderness with extension, but not with forward flexion and some mild tenderness with right greater than left rotation past 10 degrees. EXTREMITIES: The patient's lower extremities show deep tendon reflexes 1+ in the patellar and tendo calcaneus tendons. Motor exam is approximately 4 on a scale of 5, but symmetrical with dorsiflexion and extension bilaterally. The patient's left knee shows significant tenderness over the medial collateral ligament as well as over the medial aspect of the patella, right side shows previous surgical scar from knee replacement. Peripheral pulses are 1+ posterior tibia. No peripheral edema is noted in bilateral lower extremities. Options were discussed with the patient. The patient's old chart was reviewed as her current medication regimen updated. Current review of systems updated today as well. We will proceed with a left knee intraarticular joint injection with Synvisc-One with fluoroscopic guidance. Risks were again discussed including she and her daughter including, but not limited to bleeding, infection, possibility of intravascular injection sequelae, spread of local anesthetic and numbness, side effects of steroid medication as well as poor results regarding pain control. The patient understands and wished to proceed. The patient will return to clinic in approximately 2 weeks for followup. She was counseled as to return appointment, activity level and side effects to be aware of. DIAGNOSES: Primary osteoarthritis, left knee joint with left knee joint pain. PROCEDURE: Left intra-articular knee joint Synvisc-One injection using C-arm fluoroscopic guidance under sterile prep and drape using local anesthetic. MEDICATION INJECTED: A total of 6 mL of Synvisc-One as well as 1.5 mL of contrast. CONDITION AT DISCHARGE: Stable. The patient tolerated the procedure well, had no complications. ANTHONY CANTU MD DR: BALJIT/joelle JOB#: [id number] / [id number]
== END ==
LOC: PNCL 10:27
PROVIDERS: ATTEND Anesthesiology
DX: M17.12 Unilateral primary osteoarthritis, left knee (principal); M51.16 Intervertebral disc disorders with radiculopathy, lumbar region; M96.1 Postlaminectomy syndrome, not elsewhere classified; M47.817 Spondylosis without myelopathy or radiculopathy, lumbosacral region; M46.1 Sacroiliitis, not elsewhere classified
CPT/HCPCS: 20610; 77002; Q9965

== ENCOUNTER 2019-05-04 06:38 | Emergency (ER) | payer BC, MEDICARE ==
[~2019-05-04] VITALS: Ht 162.6 cm; Wt 75.0 kg
[~2019-05-04 06:38] MED LIST changes: -HYLAN G-F 20 48 MG/6 ML SYRINGE INT ART ONE; +INSU100I11 SQ; -IOHEXOL 180 MG/ML 10 ML VIAL. ONE; +POLY17PO28 PO; +PSYL3.4P PO
--- NOTE | 2019-05-04 08:15 | RAD ---
PQRS Compliance Statement: One or more of the following individualized dose reduction techniques were utilized for this examination: 1. Automated exposure control 2. Adjustment of the mA and/or kV according to patient size 3. Use of iterative reconstruction technique CT head and cervical spine without contrast 05/04/2019 7:26 AM INDICATION: Fall this morning, acting confused COMPARISON: CT head 02/01/2019, MRA head and neck 12/08/2018 TECHNIQUE: Multiple axial CT images of the head were obtained from skull base through the vertex without intravenous contrast. Multiple axial CT images of the cervical spine were obtained without intravenous contrast. Coronal and sagittal reformats are provided. FINDINGS: Head: Ventricles, sulci and basal cisterns are prominent compatible with mild to moderate generalized cerebral volume loss. Low-attenuation in the periventricular white matter is suggestive of chronic small vessel ischemic changes. There is no hydrocephalus. Vick-white matter differentiation is normal. There is no acute intracranial hemorrhage. There is no mass, mass effect or midline shift. Posterior fossa is normal in appearance. Visualized portions of the orbits are normal with exception of bilateral lens replacement. Paranasal sinuses are well aerated. Mastoid air cells are well aerated. Scalp and calvaria are normal. Cervical spine: There is minimal anterolisthesis of C5 on C6. Moderate disc height loss at C2-C3 and C6-C7. Mild intramarginal osteophytosis is identified C6-C7. Subcortical cystic change identified along the inferior endplate of C6. There is advanced disc height loss at T2-T3. Skull base is intact. Craniocervical junction is normal in appearance. Moderate degenerative changes at the atlantoaxial articulation. Vertebral body heights are maintained without evidence for acute fracture. Bilateral facet fusion at C3-C4 and C4-C5. At C3-C4, there is a posterior disc osteophyte complex with mild to moderate facet arthropathy resulting in mild to moderate bilateral neuroforaminal stenosis and mild spinal canal stenosis. At C3-C4, there is a posterior disc osteophyte complex with moderate facet arthropathy and uncovertebral joint disease resulting in moderate to severe right and moderate left neuroforaminal stenosis and mild to moderate spinal canal stenosis. At C4-C5, there is a posterior disc osteophyte complex with severe right and moderate left facet arthropathy, uncovertebral joint disease and severe right and moderate left neuroforaminal stenosis and mild spinal canal stenosis. At C5-C6, there is a posterior disc osteophyte complex with severe right and moderate left facet arthropathy, uncovertebral joint disease and severe right and moderate left neuroforaminal stenosis. Mild/moderate spinal canal stenosis. At C6-C7, there is a posterior disc osteophyte complex with moderate facet arthropathy and uncovertebral joint disease resulting in moderate bilateral neuroforaminal stenosis and mild spinal canal stenosis. Right thyroid nodule measures 16 mm. Calcified granuloma identified lung apices. 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 IMPRESSION: 1. No acute intracranial hemorrhage. Mild to moderate generalized cerebral volume loss. Low-attenuation in the periventricular white matter is suggestive of chronic small vessel ischemic changes. 2. No acute fracture of the cervical spine. Moderate cervical spondylosis, as described in detail above. Minimal anterolisthesis of C5 on C6. 3. There is suggestion of aneurysm of the left cervical internal carotid artery, although evaluation is limited by lack of intravenous contrast. Finding could be venous in etiology as well. Further evaluation with CTA of the neck is recommended on a nonemergent basis. This finding is poorly evaluated on the prior MRI head and neck. Electronically signed by: La Nena Vaughn MD (05/04/2019 8:12 AM) [id number]
--- NOTE | 2019-05-04 08:16 | RAD ---
PELVIS History: Fall. Pain. Technique: AP view the pelvis. Comparison: March 10, 2018 Findings: Right total hip arthroplasty. Normal AP alignment of the hips. No fracture. Mild left hip DJD. Advanced lower lumbar spondylosis with leftward curvature. Vascular calcifications. Impression: 1. No acute osseous abnormality. 2. Right total hip arthroplasty. 3. Advanced lower lumbar spondylosis with leftward curvature. Electronically signed by: Caden Browning DO (05/04/2019 8:13 AM) [id number]
--- NOTE | 2019-05-04 08:20 | RAD ---
ANKLE BILAT 3V, SHOULDER 2+V LEFT History: Patient fell. Shoulder pain. Ankle pain.. Comparison: None Three-view left shoulder Severe degenerative change at the glenohumeral joint. Dense calcification at the rotator cuff, most likely due to calcific tendinitis. No evidence of acute fracture. No aggressive bone destruction. Limited visualization of the aorta demonstrates calcification with ectasia/tortuosity. IMPRESSION: 1. Severe glenohumeral joint DJD. 2. 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 3. No evidence of acute fracture. Three-view right ankle: Mild degenerative changes are identified about the ankle and visualized foot. Calcaneal enthesophytes are noted. Generalized bone demineralization. No evidence of acute fracture. Vascular calcification. 3 view left ankle: Bone demineralization. Calcaneal enthesophytes are noted. Vascular calcification. Mild asymmetry of the ankle mortise, slightly wider medial as compared with lateral. No evidence of acute fracture. There are some calcifications just anterior to the ankle, could be dystrophic or possibly loose bodies. IMPRESSION: 1. Chronic and degenerative changes. 2. No definite acute fracture. Note that bone demineralization could limit detection, therefore recommend follow-up imaging if symptoms persist. Electronically signed by: Jessee Mendoza MD (05/04/2019 8:17 AM) [id number]
--- NOTE | 2019-05-04 09:19 | PHYS DOC ---
Past Medical History Past Medical History: Cancer, Diabetes-Type II, Hypertension, TIA, Other Additional Past Medical Histor: back pain Past Surgical History: Hip Replacement, Other Additional Past Surgical Histo: RIGHTR KNEE, BACK SURG Smoking Status: Never Smoker Alcohol Use: Rarely Drug Use: None Adult General Chief Complaint Chief Complaint: MECHANICAL FALL HPI HPI Patient is a 89 year old female who was sent here from her independent living center after she fell today, twisted both of her ankles and left on left shoulder. Patient denied any back pain. She may have hit her head but no loss of consciousness. Patient is not on any blood thinner. Patient denied any chest pain, no shortness of air, no cough, no fever. No knee pain, no wrists pain. Review of Systems Review of Systems Constitutional: Denies fever or chills [] Eyes: Denies change in visual acuity, redness, or eye pain [] HENT: Denies nasal congestion or sore throat [] Respiratory: Denies cough or shortness of breath [] Cardiovascular: No additional information not addressed in HPI [] GI: Denies abdominal pain, nausea, vomiting, bloody stools or diarrhea [] : Denies dysuria or hematuria [] Musculoskeletal:POSITIVE FOR LEFT SHOULDER PAIN, ANKLES PAIN. Integument: Denies rash or skin lesions [] Neurologic: Denies headache, focal weakness or sensory changes [] Endocrine: Denies polyuria or polydipsia [] All other systems were reviewed and found to be within normal limits, except as documented in this note. Allergies Allergies Allergies Coded Allergies Type Severity Reaction Last Updated Verified Kqfejec-Vlm-Wje Reductase Inhibitor Allergy Intermediate Swelling 06/12/15 Yes amlodipine Allergy Intermediate Swelling 06/12/15 Yes Physical Exam Physical Exam Constitutional: Well developed, well nourished, no acute distress, non-toxic appearance. [] HENT: Normocephalic, atraumatic, bilateral external ears normal, oropharynx moist, no oral exudates, nose normal. [] Eyes: PERRLA, EOMI, conjunctiva normal, no discharge. [] Neck: Normal range of motion, no tenderness, supple, no stridor. [] Cardiovascular:Heart rate regular rhythm, no murmur [] Lungs & Thorax: Bilateral breath sounds clear to auscultation [] Abdomen: Bowel sounds normal, soft, no tenderness, no masses, no pulsatile masses. [] Skin: Warm, dry, no erythema, no rash. [] Back: No tenderness, no CVA tenderness. [] Extremities: There is no obvious deformity, left shoulder is tenderness to palpation. BIlateral ankles appeared swollen, no deformity. Neurologic: Alert and oriented X 3, normal motor function, normal sensory function, no focal deficits noted. [] Psychologic: Affect normal, judgement normal, mood normal. [] Current Patient Data Vital Signs Vital Signs Date Time Temp Pulse Resp B/P (MAP) Pulse Ox O2 Delivery O2 Flow Rate FiO2 05/04/19 09:40 82 16 98 05/04/19 06:46 97.9 165/89 (114) Room Air 97.9 EKG EKG [] Radiology/Procedures Radiology/Procedures [][facility] [address] [place] [address] IMAGING REPORT Signed PATIENT: GAMALIEL FABIAN ACCOUNT: [id number] : 1930 LOCATION: ER AGE: 89 SEX: F EXAM STATUS: PRE ER ORD. PHYSICIAN: BRICE RODRÍGUEZ DO REASON: fell, left shoulder pain PROCEDURE: SHOULDER 2+V LEFT ANKLE BILAT 3V, SHOULDER 2+V LEFT History: Patient fell. Shoulder pain. Ankle pain.. Comparison: None Three-view left shoulder Severe degenerative change at the glenohumeral joint. Dense calcification at the rotator cuff, most likely due to calcific tendinitis. No evidence of acute fracture. No aggressive bone destruction. Limited visualization of the aorta demonstrates calcification with ectasia/tortuosity. IMPRESSION: 1. Severe glenohumeral joint DJD. 2. 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 3. No evidence of acute fracture. Three-view right ankle: Mild degenerative changes are identified about the ankle and visualized foot. Calcaneal enthesophytes are noted. Generalized bone demineralization. No evidence of acute fracture. Vascular calcification. 3 view left ankle: Bone demineralization. Calcaneal enthesophytes are noted. Vascular calcification. Mild asymmetry of the ankle mortise, slightly wider medial as compared with lateral. No evidence of acute fracture. There are some calcifications just anterior to the ankle, could be dystrophic or possibly loose bodies. IMPRESSION: 1. Chronic and degenerative changes. 2. No definite acute fracture. Note that bone demineralization could limit detection, therefore recommend follow-up imaging if symptoms persist. Electronically signed by: Jessee Mendoza MD (05/04/2019 8:17 AM) [id number] DICTATED and SIGNED BY: JESSEE MENDOZA MD DATE: 05/04/19 0817 [facility] [address] [place] [address] IMAGING REPORT Signed PATIENT: GAMALIEL FABIAN ACCOUNT: [id number] : 1930 LOCATION: ER AGE: 89 SEX: F EXAM STATUS: PRE ER ORD. PHYSICIAN: BRICE RODRÍGUEZ DO REASON: fell, ankles pain PROCEDURE: ANKLE BILAT 3V ANKLE BILAT 3V, SHOULDER 2+V LEFT History: Patient fell. Shoulder pain. Ankle pain.. Comparison: None Three-view left shoulder Severe degenerative change at the glenohumeral joint. Dense calcification at the rotator cuff, most likely due to calcific tendinitis. No evidence of acute fracture. No aggressive bone destruction. Limited visualization of the aorta demonstrates calcification with ectasia/tortuosity. IMPRESSION: 1. Severe glenohumeral joint DJD. 2. 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 3. No evidence of acute fracture. Three-view right ankle: Mild degenerative changes are identified about the ankle and visualized foot. Calcaneal enthesophytes are noted. Generalized bone demineralization. No evidence of acute fracture. Vascular calcification. 3 view left ankle: Bone demineralization. Calcaneal enthesophytes are noted. Vascular calcification. Mild asymmetry of the ankle mortise, slightly wider medial as compared with lateral. No evidence of acute fracture. There are some calcifications just anterior to the ankle, could be dystrophic or possibly loose bodies. IMPRESSION: 1. Chronic and degenerative changes. 2. No definite acute fracture. Note that bone demineralization could limit detection, therefore recommend follow-up imaging if symptoms persist. Electronically signed by: Jessee Mendoza MD (05/04/2019 8:17 AM) [id number] DICTATED and SIGNED BY: JESSEE MENDOZA MD DATE: 05/04/19816 [facility] [address] [place] [address] IMAGING REPORT Signed PATIENT: GAMALIEL FABIAN ACCOUNT: [id number] : 1930 LOCATION: ER AGE: 89 SEX: F EXAM STATUS: PRE ER ORD. PHYSICIAN: BRICE RODRÍGUEZ DO REASON: fell this morning, acting confused PROCEDURE: CT HEAD AND CERVICAL SPINE WO PQRS Compliance Statement: One or more of the following individualized dose reduction techniques were utilized for this examination: 1. Automated exposure control 2. Adjustment of the mA and/or kV according to patient size 3. Use of iterative reconstruction technique CT head and cervical spine without contrast 05/04/2019 7:26 AM INDICATION: Fall this morning, acting confused COMPARISON: CT head 02/01/2019, MRA head and neck 12/08/2018 TECHNIQUE: Multiple axial CT images of the head were obtained from skull base through the vertex without intravenous contrast. Multiple axial CT images of the cervical spine were obtained without intravenous contrast. Coronal and sagittal reformats are provided. FINDINGS: Head: Ventricles, sulci and basal cisterns are prominent compatible with mild to moderate generalized cerebral volume loss. Low-attenuation in the periventricular white matter is suggestive of chronic small vessel ischemic changes. There is no hydrocephalus. Vick-white matter differentiation is normal. There is no acute intracranial hemorrhage. There is no mass, mass effect or midline shift. Posterior fossa is normal in appearance. Visualized portions of the orbits are normal with exception of bilateral lens replacement. Paranasal sinuses are well aerated. Mastoid air cells are well aerated. Scalp and calvaria are normal. Cervical spine: There is minimal anterolisthesis of C5 on C6. Moderate disc height loss at C2-C3 and C6-C7. Mild intramarginal osteophytosis is identified C6-C7. Subcortical cystic change identified along the inferior endplate of C6. There is advanced disc height loss at T2-T3. Skull base is intact. Craniocervical junction is normal in appearance. Moderate degenerative changes at the atlantoaxial articulation. Vertebral body heights are maintained without evidence for acute fracture. Bilateral facet fusion at C3-C4 and C4-C5. At C3-C4, there is a posterior disc osteophyte complex with mild to moderate facet arthropathy resulting in mild to moderate bilateral neuroforaminal stenosis and mild spinal canal stenosis. At C3-C4, there is a posterior disc osteophyte complex with moderate facet arthropathy and uncovertebral joint disease resulting in moderate to severe right and moderate left neuroforaminal stenosis and mild to moderate spinal canal stenosis. At C4-C5, there is a posterior disc osteophyte complex with severe right and moderate left facet arthropathy, uncovertebral joint disease and severe right and moderate left neuroforaminal stenosis and mild spinal canal stenosis. At C5-C6, there is a posterior disc osteophyte complex with severe right and moderate left facet arthropathy, uncovertebral joint disease and severe right and moderate left neuroforaminal stenosis. Mild/moderate spinal canal stenosis. At C6-C7, there is a posterior disc osteophyte complex with moderate facet arthropathy and uncovertebral joint disease resulting in moderate bilateral neuroforaminal stenosis and mild spinal canal stenosis. Right thyroid nodule measures 16 mm. Calcified granuloma identified lung apices. 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 IMPRESSION: 1. No acute intracranial hemorrhage. Mild to moderate generalized cerebral volume loss. Low-attenuation in the periventricular white matter is suggestive of chronic small vessel ischemic changes. 2. No acute fracture of the cervical spine. Moderate cervical spondylosis, as described in detail above. Minimal anterolisthesis of C5 on C6. 3. There is suggestion of aneurysm of the left cervical internal carotid artery, although evaluation is limited by lack of intravenous contrast. Finding could be venous in etiology as well. Further evaluation with CTA of the neck is recommended on a nonemergent basis. This finding is poorly evaluated on the prior MRI head and neck. Electronically signed by: Ghassan De La Cruz MD (05/04/2019 8:12 AM) [id number] DICTATED and SIGNED BY: GHASSAN DE LA CRUZ MD DATE: 05/04/19 08 [facility] [address] [place], [place] [id number] IMAGING REPORT Signed PATIENT: GAMALIEL FABIAN ACCOUNT: [id number] : 1930 LOCATION: ER AGE: 89 SEX: F EXAM STATUS: PRE ER ORD. PHYSICIAN: BRICE RODRÍGUEZ DO REASON: fell, pelvis pain PROCEDURE: PELVIS PELVIS History: Fall. Pain. Technique: AP view the pelvis. Comparison: March 10, 2018 Findings: Right total hip arthroplasty. Normal AP alignment of the hips. No fracture. Mild left hip DJD. Advanced lower lumbar spondylosis with leftward curvature. Vascular calcifications. Impression: 1. No acute osseous abnormality. 2. Right total hip arthroplasty. 3. Advanced lower lumbar spondylosis with leftward curvature. Electronically signed by: Caden Browning DO (05/04/2019 8:13 AM) [id number] DICTATED and SIGNED BY: CADEN BROWNING DO DATE: 05/04/19 0813 Course & Med Decision Making Course & Med Decision Making Pertinent Labs and Imaging studies reviewed. (See chart for details) [] Dragon Disclaimer Dragon Disclaimer This electronic medical record was generated, in whole or in part, using a voice recognition dictation system. Departure Departure Impression: Primary Impression: Contusion of left shoulder Additional Impression: Mild ankle sprain Disposition: 01 HOME, SELF-CARE Condition: STABLE Referrals: JESSEE GROVES MD (PCP) Patient Instructions: Ankle Sprain, [id number], Contusion Problem Qualifiers BRICE RODRÍGUEZ DO May 04, 2019 09:19
[2019-05-04 09:40] VITALS: BP 170/91
== END 2019-05-04 11:00 | disposition home or self-care (01) ==
LOC: ER 06:38
DX: S93.402A Sprain of unspecified ligament of left ankle, initial encounter (principal); S40.012A Contusion of left shoulder, initial encounter; R10.2 Pelvic and perineal pain; R41.0 Disorientation, unspecified; M47.816 Spondylosis without myelopathy or radiculopathy, lumbar region; M47.812 Spondylosis without myelopathy or radiculopathy, cervical region; M16.12 Unilateral primary osteoarthritis, left hip; E11.9 Type 2 diabetes mellitus without complications; I10 Essential (primary) hypertension; Z86.73 Personal history of transient ischemic attack (TIA), and cerebral infarction without residual deficits; Z91.041 Radiographic dye allergy status; Z88.8 Allergy status to other drugs, medicaments and biological substances; W18.39XA Other fall on same level, initial encounter; Y93.89 Activity, other specified; Y92.89 Other specified places as the place of occurrence of the external cause; Y99.8 Other external cause status
CPT/HCPCS: 70450; 72125; 72170; 73030; 73610; 99285-25